=== PATIENT | male | born 1950 | race Caucasian/White ===

== ENCOUNTER 2020-10-28 00:17 | Emergency (ER) | payer MEDICARE, BC ==
[~2020-10-28] VITALS: Ht 175.3 cm; Wt 98.0 kg
[~2020-10-28 00:17] MED LIST: ALLO100T PO; ASPI-1264 PO; CALC-854 PO; CHOL10002 PO; DIPH25CA83 PO; DOCU-28 PO; LIQUID IRON PO; METO-539 PO; NAPR-1144 PO; SIMV80TA2 PO; WALKERFR
[2020-10-28 00:37] VITALS: BP 169/85
[2020-10-28 01:16] LABS: ALANINE AMINOTRANSFERASE 32 U/L (12-78); ALBUMIN 3.9 G/DL (3.4-5.0); ALBUMIN/GLOBULIN RATIO 1.3 (1.1-1.5); ALKALINE PHOSPHATASE 83 IU/L (46-116); ANION GAP 12 (8-16); ASPARTATE AMINO TRANSFERASE 19 U/L (10-37); BILIRUBIN,TOTAL 0.4 MG/DL (0.1-1.0); BLOOD UREA NITROGEN 34 MG/DL (7-18); BUN/CREATININE RATIO 30.4 (5.4-32.0); CALCIUM 8.6 MG/DL (8.5-10.1); CHLORIDE 109 MMOL/L (99-107); CREATININE 1.12 MG/DL (0.60-1.10); GLUCOSE 121 MG/DL (70-104); POTASSIUM 3.8 MMOL/L (3.5-5.1); SODIUM 146 MMOL/L (135-145); TOTAL CARBON DIOXIDE 25.4 MMOL/L (24-32); TOTAL PROTEIN 6.9 G/DL (6.4-8.2); eGFR 64 ML/MIN
[2020-10-28 01:19] LABS: CLARITY,URINE CLEAR (Clear); COLOR,URINE YELLOW (Yellow); GLUCOSE, URINE NEGATIVE (Neg); KETONES,URINE NEGATIVE (Neg); LEUKOCYTE ESTERASE ,URINE TRACE (Neg); NITRITES, URINE NEGATIVE (Neg); OCCULT BLOOD,URINE MODERATE (Neg); PH,URINE 5.5 (4.8-8.0); PROTEIN,URINE NEGATIVE (Neg)
[2020-10-28 01:29] LABS: BACTERIA,URINE 1+ /HPF (Neg); SQUAMOUS EPITHELIAL CELL,UR FEW /LPF (FEW)
[2020-10-28 01:53] LABS: BASOPHILS % (AUTO) 0.7 % (0-1); EOSINOPHILS # (AUTO) 0.2 X10'3 (0-0.9); EOSINOPHILS % (AUTO) 3.5 % (0-6); HEMATOCRIT 43.7 % (42.0-52.0); HEMOGLOBIN 14.5 g/dl (14.0-17.9); LYMPHOCYTES # (AUTO) 2.7 X10'3 (1.1-4.8); LYMPHOCYTES % (AUTO) 41.1 % (21-51); MEAN CORPUSCULAR HEMOGLOBIN 33.3 PG (27.0-31.0); MEAN CORPUSCULAR HGB CONC 33.2 g/dL (33.0-36.5); MEAN CORPUSCULAR VOLUME 100.2 FL (78-98); MEAN PLATELET VOLUME 11.1 FL (7.4-10.4); MONOCYTES # (AUTO) 0.6 X10'3 (0-0.9); MONOCYTES % (AUTO) 9.6 % (2-12); NEUTROPHILS % (AUTO) 45.1 % (42-75); PLATELET COUNT 141 X10'3 (140-440); RED BLOOD COUNT 4.36 X10'6 (4.70-6.10); RED CELL DISTRIBUTION WIDTH 13.8 % (11.5-14.5); WHITE BLOOD COUNT 6.7 X10'3 (4.5-11.0)
[2020-10-28 02:15] LABS: UA COLLECTION TYPE CLN CATCH MIDSTREAM
[2020-10-28] MEDS ORDERED: ONDA4TAB12 PO (03:45)
== END 2020-10-28 04:00 | disposition home or self-care (01) ==
LOC: ER 00:17
DX: N20.0 Calculus of kidney (principal); R10.84 Generalized abdominal pain; Z88.5 Allergy status to narcotic agent; Z88.8 Allergy status to other drugs, medicaments and biological substances; Z79.82 Long term (current) use of aspirin; Z79.899 Other long term (current) drug therapy
CPT/HCPCS: 36415; 74176; 80053; 81001; 85025; 99284

== ENCOUNTER 2021-05-04 05:38 | Inpatient (IN) | payer MEDICARE ==
[~2021-05-04] VITALS: Ht 177.8 cm; Wt 100.0 kg
[~2021-05-04 05:38] MED LIST changes: +ONDA4TAB12 PO
[2021-05-04] MEDS ORDERED: ROSU20TA31 PO (06:04)
[2021-05-04 06:09] LABS: BASOPHILS # (AUTO) 0.1 X10'3 (0-0.2); BASOPHILS % (AUTO) 0.9 % (0-1); EOSINOPHILS # (AUTO) 0.2 X10'3 (0-0.9); EOSINOPHILS % (AUTO) 2.9 % (0-6); HEMATOCRIT 44.4 % (42.0-52.0); HEMOGLOBIN 14.9 g/dl (14.0-17.9); LYMPHOCYTES # (AUTO) 2.9 X10'3 (1.1-4.8); LYMPHOCYTES % (AUTO) 45.1 % (21-51); MEAN CORPUSCULAR HEMOGLOBIN 32.8 PG (27.0-31.0); MEAN CORPUSCULAR HGB CONC 33.6 g/dL (33.0-36.5); MEAN CORPUSCULAR VOLUME 97.7 FL (78-98); MEAN PLATELET VOLUME 10.8 FL (7.4-10.4); MONOCYTES # (AUTO) 0.7 X10'3 (0-0.9); MONOCYTES % (AUTO) 10.5 % (2-12); NEUTROPHILS # (AUTO) 2.6 X10'3 (1.8-7.7); NEUTROPHILS % (AUTO) 40.6 % (42-75); PLATELET COUNT 130 X10'3 (140-440); RED BLOOD COUNT 4.55 X10'6 (4.70-6.10); RED CELL DISTRIBUTION WIDTH 14.4 % (11.5-14.5); WHITE BLOOD COUNT 6.4 X10'3 (4.5-11.0)
[2021-05-04 06:12] LABS: D-DIMER 0.85 MG/L FEU (0-0.50)
[2021-05-04 06:20] LABS: ALANINE AMINOTRANSFERASE 31 U/L (12-78); ALBUMIN 3.8 G/DL (3.4-5.0); ALBUMIN/GLOBULIN RATIO 1.2 (1.1-1.5); ANION GAP 11 (8-16); ASPARTATE AMINO TRANSFERASE 24 U/L (10-37); BILIRUBIN,TOTAL 0.4 MG/DL (0.1-1.0); BLOOD UREA NITROGEN 31 MG/DL (7-18); BUN/CREATININE RATIO 29.5 (5.4-32.0); CHLORIDE 106 MMOL/L (99-107); CREATININE 1.05 MG/DL (0.60-1.10); GLUCOSE 134 MG/DL (70-104); SODIUM 144 MMOL/L (135-145); TOTAL CARBON DIOXIDE 26.8 MMOL/L (24-32); TOTAL PROTEIN 7.1 G/DL (6.4-8.2); eGFR 69 ML/MIN
[2021-05-04] MEDS ORDERED: ondansetron 4mg rapidly disintigrating tab PO ONE (06:20)
[2021-05-04] MEDS ORDERED: fentaNYL/PF 50MCG/1 ML 2ML syringe IV ONE (06:20)
[2021-05-04 06:24] LABS: POTASSIUM 4.3 MMOL/L (3.5-5.1)
[2021-05-04] MEDS ORDERED: normal saline 1000ml 1,000 ML IV ONE (06:30)
[2021-05-04] MEDS ORDERED: famotidine/PF 10 mg/ml inj IV ONE (06:30)
[2021-05-04] MEDS ORDERED: iohexol 350MG/ML 100ml bottle IV ONE (07:01)
--- NOTE | 2021-05-04 07:17 | NUR ---
To CT at this time via [facility].
[2021-05-04] MEDS ORDERED: potassium CL 10mEq/100ml bag 100 ML IV PRN (09:00)
[2021-05-04] MEDS ORDERED: enoxaparin 40mg/0.4ml syringe SUBCUT SCH (09:00)
[2021-05-04] MEDS ORDERED: magnesium 4gm in 100ml NS 100 ML IV PRN (09:00)
[2021-05-04] MEDS ORDERED: mag hydrox/Alum hydrox/simeth 30ml oral suspension PO PRN (09:00)
[2021-05-04] MEDS ORDERED: regadenoson 0.4mg/5ml syringe IV PRN (09:00)
[2021-05-04] MEDS ORDERED: magnesium Cl slow-release 64mg tablet PO PRN (09:00)
[2021-05-04] MEDS ORDERED: acetaminophen 650mg rectal suppository RC PRN (09:00)
[2021-05-04] MEDS ORDERED: metoprolol tartrate 1mg/ml inj IV PRN (09:00)
[2021-05-04] MEDS ORDERED: potassium Cl 20 mEq SR tablet PO PRN ×2 (09:00)
[2021-05-04] MEDS ORDERED: magnesium 2GM in 50ml NS 50 ML IV PRN (09:00)
[2021-05-04] MEDS ORDERED: diphenhydrAMINE 25mg capsule PO PRN ×2 (09:00→18:55)
[2021-05-04] MEDS ORDERED: bisacodyl 10mg suppository rectal RC PRN (09:00)
[2021-05-04] MEDS ORDERED: magnesium hydroxide 30ml (MOM) UD suspension PO PRN (09:00)
[2021-05-04] MEDS ORDERED: acetaminophen 325mg tablet PO PRN ×2 (09:00)
[2021-05-04] MEDS ORDERED: ondansetron/PF 4mg/2ml inj IV PRN (09:00)
[2021-05-04] MEDS ORDERED: nitroGLYCERIN 0.4mg SUBLingual tab SL PRN (09:00)
[2021-05-04] MEDS ORDERED: aminophylline 250mg/10ml inj. IV PRN (09:00)
[2021-05-04] MEDS ORDERED: heparin 10,000 units/1 ML INJ IV ONE (09:05)
[2021-05-04] MEDS ORDERED: heparin 25,000 UNIT/250ml bag 250 ML IV SCH (09:05)
[2021-05-04 09:20] LABS: ANISOCYTOSIS FEW; LARGE PLATELETS FEW; PLATELET ESTIMATE DECREASED
[2021-05-04 09:21] LABS: ELLIPTOCYTES FEW
[2021-05-04 09:25] LABS: APTT 27 SECONDS (22-32)
[2021-05-04] MEDS: normal saline 1000ml 1,000 ML IV SCH ×2 (09:25→23:40)
[2021-05-04 09:32] LABS: BASOPHILS % (AUTO) 0.7 % (0-1); EOSINOPHILS % (AUTO) 0.6 % (0-6); HEMATOCRIT 38.3 % (42.0-52.0); HEMOGLOBIN 13.2 g/dl (14.0-17.9); LYMPHOCYTES # (AUTO) 1.5 X10'3 (1.1-4.8); LYMPHOCYTES % (AUTO) 21.9 % (21-51); MEAN CORPUSCULAR HGB CONC 34.6 g/dL (33.0-36.5); MEAN CORPUSCULAR VOLUME 95.5 FL (78-98); MEAN PLATELET VOLUME 10.3 FL (7.4-10.4); MONOCYTES # (AUTO) 0.4 X10'3 (0-0.9); MONOCYTES % (AUTO) 6.7 % (2-12); NEUTROPHILS # (AUTO) 4.6 X10'3 (1.8-7.7); NEUTROPHILS % (AUTO) 70.1 % (42-75); PLATELET COUNT 144 X10'3 (140-440); RED BLOOD COUNT 4.01 X10'6 (4.70-6.10); RED CELL DISTRIBUTION WIDTH 14.4 % (11.5-14.5); WHITE BLOOD COUNT 6.6 X10'3 (4.5-11.0)
[2021-05-04 10:13] LABS: CLARITY,URINE CLOUDY (Clear); COLOR,URINE YELLOW (Yellow); GLUCOSE, URINE NEGATIVE (Neg); KETONES,URINE NEGATIVE (Neg); LEUKOCYTE ESTERASE ,URINE NEGATIVE (Neg); NITRITES, URINE NEGATIVE (Neg); OCCULT BLOOD,URINE LARGE (Neg); PROTEIN,URINE NEGATIVE (Neg); UROBILINOGEN,URINE 0.2 E.U/dL (0.2-1.0)
[2021-05-04 10:19] LABS: UA COLLECTION TYPE URINAL
[2021-05-04 10:20] LABS: RBC,URINE TNTC /HPF (0-2)
[2021-05-04 10:21] LABS: BACTERIA,URINE FEW /HPF (Neg); MUCUS STRANDS FEW /LPF (Neg); SQUAMOUS EPITHELIAL CELL,UR FEW /LPF (FEW); WBC,URINE 0-4 /HPF (0-4)
[2021-05-04 10:45] VITALS: BP 138/70
--- NOTE | 2021-05-04 10:45 | NUR ---
DR. GUERRERO AND PRIMARY RN AZUL IN PATIENT ROOM ON ARRIVAL TO PICKUP PT AND TRANSPORT PT TO [facility] FOR STRESS TEST. ADDRESSED DOCTOR ABOUT ELEVATED 2ND TROPONIN , 3RD TROP IS DUE AT 1130. DOCTOR STATED, TO HOLD OFF STRESS PORTION IF THE 3RD TROP COMES BACK ELEVATED.
[2021-05-04] MEDS ORDERED: HYDROcodone/acetaminophen 5mg/325mg tablet PO PRN (13:15)
--- NOTE | 2021-05-04 13:20 | NUR ---
PAGED REGARDING 3RD TROPONIN BEING ELEVATE. PER PREVIOUS CONVERSATION WITH WILL HOLD STRESS PORTION UNTIL FISHING ROD MARKER IS CONSULTED. WILL FOLLOWUP WITH RN.
[2021-05-04 15:00] VITALS: BP 141/70
[2021-05-04] MEDS ORDERED: DOCU100C42 PO (16:44)
[2021-05-04] MEDS ORDERED: NAPR-1115 PO ×2 (16:44→16:46)
[2021-05-04] MEDS ORDERED: DIPH-735 PO (16:44)
[2021-05-04 18:00] VITALS: BP 142/83
[2021-05-04] MEDS ORDERED: docusate sod 100mg capsule PO PRN (18:45)
[2021-05-04] MEDS: heparin 25,000 UNIT/250ml bag 250 ML IV SCH (19:08)
[2021-05-04] MEDS: K and/or MAG REPLACEMENT MC SCH (20:00)
[2021-05-04] MEDS: metoprolol tartrate 25mg tablet PO SCH (20:26)
[2021-05-04] MEDS: docusate sod 100mg capsule PO SCH (20:26)
[2021-05-04] MEDS: heparin 10,000 units/1 ML INJ IV PRN (23:33)
[2021-05-05] VITALS (7 sets, daily range): BP systolic 105–141; BP diastolic 62–84
--- NOTE | 2021-05-05 02:00 | NUR ---
Pt Tip Trinidad In room 3014 B has a 2 seconds pause around 2 AM. Pt was trying to get out of bed to the bathroom. pt denied chest pain or respiratory discomfort, Heparin drips infusing well.
[2021-05-05 05:51] LABS: BASOPHILS % (AUTO) 0.5 % (0-1); EOSINOPHILS # (AUTO) 0.1 X10'3 (0-0.9); EOSINOPHILS % (AUTO) 1.5 % (0-6); HEMATOCRIT 40.8 % (42.0-52.0); HEMOGLOBIN 13.7 g/dl (14.0-17.9); LYMPHOCYTES # (AUTO) 2.3 X10'3 (1.1-4.8); LYMPHOCYTES % (AUTO) 28.5 % (21-51); MEAN CORPUSCULAR HEMOGLOBIN 32.8 PG (27.0-31.0); MEAN CORPUSCULAR HGB CONC 33.6 g/dL (33.0-36.5); MEAN CORPUSCULAR VOLUME 97.7 FL (78-98); MEAN PLATELET VOLUME 11.4 FL (7.4-10.4); MONOCYTES # (AUTO) 0.6 X10'3 (0-0.9); MONOCYTES % (AUTO) 8.2 % (2-12); NEUTROPHILS # (AUTO) 4.8 X10'3 (1.8-7.7); NEUTROPHILS % (AUTO) 61.3 % (42-75); PLATELET COUNT 129 X10'3 (140-440); RED BLOOD COUNT 4.17 X10'6 (4.70-6.10); RED CELL DISTRIBUTION WIDTH 14.4 % (11.5-14.5); WHITE BLOOD COUNT 7.9 X10'3 (4.5-11.0)
--- NOTE | 2021-05-05 07:00 | NUR ---
Heparin drip on hold at this time; nurse receiving report aware.
[2021-05-05 07:51] LABS: ALANINE AMINOTRANSFERASE 32 U/L (12-78); ALBUMIN 3.3 G/DL (3.4-5.0); ALBUMIN/GLOBULIN RATIO 1.3 (1.1-1.5); ALKALINE PHOSPHATASE 66 IU/L (46-116); ANION GAP 14 (8-16); ASPARTATE AMINO TRANSFERASE 70 U/L (10-37); BILIRUBIN,TOTAL 0.3 MG/DL (0.1-1.0); BLOOD UREA NITROGEN 22 MG/DL (7-18); BUN/CREATININE RATIO 22.7 (5.4-32.0); CALCIUM 8.5 MG/DL (8.5-10.1); CHLORIDE 107 MMOL/L (99-107); CHOL/HDL RATIO 5.3 (0.00-4.99); CHOLESTEROL 243 MG/DL (0-200); CREATININE 0.97 MG/DL (0.60-1.10); GLUCOSE 115 MG/DL (70-104); HDL CHOLESTEROL 46 MG/DL (35-60); LDL CHOLESTEROL 154 MG/DL (50-100); MAGNESIUM 1.9 MG/DL (1.5-2.4); PHOSPHORUS 3.4 MG/DL (2.3-4.5); POTASSIUM 4.1 MMOL/L (3.5-5.1); SODIUM 143 MMOL/L (135-145); TOTAL PROTEIN 5.9 G/DL (6.4-8.2); TRIGLYCERIDES 115 MG/DL (20-135); eGFR 76 ML/MIN
[2021-05-05] MEDS ORDERED: [UNRECOGNIZED DRUG - REMARK] PO SCH (08:00)
[2021-05-05] MEDS: heparin 25,000 UNIT/250ml bag 250 ML IV SCH (08:00)
[2021-05-05] MEDS: K and/or MAG REPLACEMENT MC SCH ×2 (08:06→19:49)
[2021-05-05] MEDS: aspirin 81mg tab.chew PO SCH (10:23)
[2021-05-05] MEDS: docusate sod 100mg capsule PO SCH ×2 (10:24→19:39)
[2021-05-05] MEDS: allopurinol 100mg tablet PO SCH (10:24)
[2021-05-05] MEDS: metoprolol tartrate 25mg tablet PO SCH ×2 (10:25→19:47)
[2021-05-05] MEDS: normal saline 1000ml 1,000 ML IV SCH (10:30)
--- NOTE | 2021-05-05 11:25 | NUR ---
DM consult: Noted pt A1c 7.0, though no hx of DM in the EMR. mechanical engineering intern discussed w/ pt at bedside who states he has no known hx of DM. Discussed w/ nurse that physician needs to give pt official dx before RD can provide DM education. Addendum: 05/05/21 at 1125 by Nadia Travis Supervisor [employer] RD Amended: Links added.
--- NOTE | 2021-05-05 11:58 | NUR ---
DM consult: Pt admit dx chest pain secondary to NSTEMI, w/ hx hyperlipidemia, HTN, and CAD per EMR. Noted pt A1c 7.0, though no hx of DM in the EMR. international marketing executive discussed w/ pt at bedside who states he has no known hx of DM. Discussed w/ nurse that physician needs to give pt official dx before RD can provide DM education. Pt currently on heart healthy diet w/ 75-100% x first two meals and meeting needs. LBM pending, receiving routine bowel care. Will continue to monitor for nutrition intervention needs. Recommendations: 1. Continue heart healthy diet 2. Routine bowel care 3. Scaled wt this admit, subsequent weekly scaled wts 4. DM ed by RD once pt made aware of DM dx by Addendum: 05/05/21 at [address] Amended: Links added. Addendum: 05/05/21 at [address] I have reviewed assessment by graphics intern
[2021-05-05] MEDS: heparin 10,000 units/1 ML INJ IV PRN (14:49)
[2021-05-05] MEDS ORDERED: nitroGLYCERIN-Tridil 50MG/D5W 250 ML IV ONE (16:30)
[2021-05-05] MEDS ORDERED: iohexol 350MG/ML 100ml bottle IV ONE ×2 (16:31→17:26)
[2021-05-05] MEDS ORDERED: midazolam 1 mg/ML 2ml injection ONE (16:31)
[2021-05-05] MEDS ORDERED: fentaNYL/PF 50MCG/1 ML 2ML syringe ONE (16:31)
[2021-05-05] MEDS ORDERED: LIDOcaine 1% (10mg/ml)w/preservative injection 20ml MDV ONE (16:31)
[2021-05-05] MEDS ORDERED: iohexol 350 MG/ML 50ML vial IV ONE (16:31)
--- NOTE | 2021-05-05 16:46 | NUR ---
Patient went down to collaborating supervising physician.
[2021-05-05] MEDS ORDERED: heparin 1,000unit/ml 10ml vial 10 ML ONE (17:04)
--- NOTE | 2021-05-05 18:20 | NUR ---
Pt back to floor post cardiac cath. Post cardiac cath activity teaching done. Pt verbalized understanding. Will continue to instruct pt to stay flat in bed and to report any bleeding or hematoma to his right groin
[2021-05-05] MEDS ORDERED: isosorbide mononitrate 30mg tab.SR.24H PO ONE (19:35)
--- NOTE | 2021-05-05 21:21 | NUR ---
No signs of bleeding , no hematoma noted. Pt continues to lay flat in bed.
[2021-05-06] MEDS: normal saline 1000ml 1,000 ML IV SCH (01:00)
--- NOTE | 2021-05-06 01:38 | NUR ---
Pt still lying in in bed instructed that he can get up to ambulate. No hematoma, no bleeding noted. Bilateral pedal pulse felt
[2021-05-06 02:00] VITALS: BP 100/54
--- NOTE | 2021-05-06 04:00 | NUR ---
Pt out of bed to the bathroom, no signs of discomfort noted. Left groin with clean and intact dressing. Addendum: 05/06/21 at 0705 [address]ena Cr RN right anthony
--- NOTE | 2021-05-06 05:00 | NUR ---
Pt sitting in chair, no signs of bleeding noted to right groin. Pedal pulse felt.
[2021-05-06 06:00] VITALS: BP 114/61
[2021-05-06 06:57] LABS: BASOPHILS % (AUTO) 0.4 % (0-1); EOSINOPHILS # (AUTO) 0.1 X10'3 (0-0.9); EOSINOPHILS % (AUTO) 1.1 % (0-6); HEMATOCRIT 39.4 % (42.0-52.0); HEMOGLOBIN 13.2 g/dl (14.0-17.9); LYMPHOCYTES # (AUTO) 1.5 X10'3 (1.1-4.8); LYMPHOCYTES % (AUTO) 23.8 % (21-51); MEAN CORPUSCULAR HEMOGLOBIN 32.6 PG (27.0-31.0); MEAN CORPUSCULAR HGB CONC 33.4 g/dL (33.0-36.5); MEAN CORPUSCULAR VOLUME 97.7 FL (78-98); MEAN PLATELET VOLUME 11.2 FL (7.4-10.4); MONOCYTES # (AUTO) 0.6 X10'3 (0-0.9); MONOCYTES % (AUTO) 9.2 % (2-12); NEUTROPHILS # (AUTO) 4.1 X10'3 (1.8-7.7); NEUTROPHILS % (AUTO) 65.5 % (42-75); PLATELET COUNT 122 X10'3 (140-440); RED BLOOD COUNT 4.03 X10'6 (4.70-6.10); RED CELL DISTRIBUTION WIDTH 14.5 % (11.5-14.5); WHITE BLOOD COUNT 6.2 X10'3 (4.5-11.0)
[2021-05-06 07:17] LABS: ALANINE AMINOTRANSFERASE 29 U/L (12-78); ALBUMIN 3.1 G/DL (3.4-5.0); ALBUMIN/GLOBULIN RATIO 1.2 (1.1-1.5); ALKALINE PHOSPHATASE 64 IU/L (46-116); ANION GAP 10 (8-16); ASPARTATE AMINO TRANSFERASE 52 U/L (10-37); BILIRUBIN,TOTAL 0.4 MG/DL (0.1-1.0); BLOOD UREA NITROGEN 20 MG/DL (7-18); BUN/CREATININE RATIO 21.1 (5.4-32.0); CALCIUM 8.4 MG/DL (8.5-10.1); CHLORIDE 107 MMOL/L (99-107); CREATININE 0.95 MG/DL (0.60-1.10); GLUCOSE 102 MG/DL (70-104); MAGNESIUM 1.8 MG/DL (1.5-2.4); PHOSPHORUS 3.8 MG/DL (2.3-4.5); POTASSIUM 4.1 MMOL/L (3.5-5.1); SODIUM 144 MMOL/L (135-145); TOTAL CARBON DIOXIDE 26.8 MMOL/L (24-32); TOTAL PROTEIN 5.7 G/DL (6.4-8.2); eGFR 78 ML/MIN
[2021-05-06] MEDS ORDERED: isosorbide mononitrate 30mg tab.SR.24H PO SCH (08:00)
[2021-05-06] MEDS ORDERED: ROSUVASTATIN CALCIUM 5 MG TABLET PO SCH (08:00)
[2021-05-06] MEDS: allopurinol 100mg tablet PO SCH (08:51)
[2021-05-06] MEDS: docusate sod 100mg capsule PO SCH (08:52)
[2021-05-06] MEDS: aspirin 81mg tab.chew PO SCH (08:52)
[2021-05-06] MEDS: metoprolol tartrate 25mg tablet PO SCH (08:55)
[2021-05-06] MEDS: K and/or MAG REPLACEMENT MC SCH (08:58)
[2021-05-06] MEDS ORDERED: ISOS30TA84 PO (10:41)
[2021-05-06 11:00] VITALS: BP 113/53
[2021-05-06] MEDS ORDERED: ROSU40TA PO (11:37)
--- NOTE | 2021-05-06 13:00 | NUR ---
Patient discharge to home. Discharged instruction provided to patient and to follow up with PCP and parts representative in 1 week. Patient and verbalized understanding. IV discontinue. Addendum: 05/06/21 at 1322 [address] Bethany Cr RN Patient discharge to home. Discharged instruction provided to patient and to follow up with PCP and parts representative in 1 week. Patient and verbalized understanding. IV discontinue. Patient left with all belongings.
== END 2021-05-06 14:19 | disposition home or self-care (01) | DRG 282 ==
LOC: ER 05:38 → ED HOLD 09:04 → PCU 3S 10:32
PROVIDERS: ADMIT Family Medicine; ATTEND Family Medicine
PROC: B32T1ZZ Computerized Tomography (CT Scan) of Left Pulmonary Artery using Low Osmolar Contrast (ICD-10-PCS; 2021-05-04)
PROC: B3201ZZ Computerized Tomography (CT Scan) of Thoracic Aorta using Low Osmolar Contrast (ICD-10-PCS; 2021-05-04)
PROC: B32S1ZZ Computerized Tomography (CT Scan) of Right Pulmonary Artery using Low Osmolar Contrast (ICD-10-PCS; 2021-05-04)
PROC: 4A02XM4 Measurement of Cardiac Total Activity, External Approach (ICD-10-PCS; 2021-05-04)
PROC: 3E033HZ Introduction of Radioactive Substance into Peripheral Vein, Percutaneous Approach (ICD-10-PCS; 2021-05-04)
PROC: 4A023N7 Measurement of Cardiac Sampling and Pressure, Left Heart, Percutaneous Approach (ICD-10-PCS; principal; 2021-05-05)
PROC: B2111ZZ Fluoroscopy of Multiple Coronary Arteries using Low Osmolar Contrast (ICD-10-PCS; 2021-05-05)
PROC: B2151ZZ Fluoroscopy of Left Heart using Low Osmolar Contrast (ICD-10-PCS; 2021-05-05)
PROC: B3101ZZ Fluoroscopy of Thoracic Aorta using Low Osmolar Contrast (ICD-10-PCS; 2021-05-05)
PROC: B2131ZZ Fluoroscopy of Multiple Coronary Artery Bypass Grafts using Low Osmolar Contrast (ICD-10-PCS; 2021-05-05)
PROC: B2181ZZ Fluoroscopy of Left Internal Mammary Bypass Graft using Low Osmolar Contrast (ICD-10-PCS; 2021-05-05)
PROC: B2171ZZ Fluoroscopy of Right Internal Mammary Bypass Graft using Low Osmolar Contrast (ICD-10-PCS; 2021-05-05)
DX: I21.4 Non-ST elevation (NSTEMI) myocardial infarction (principal); Z20.822 Contact with and (suspected) exposure to COVID-19; E78.5 Hyperlipidemia, unspecified; E78.00 Pure hypercholesterolemia, unspecified; I10 Essential (primary) hypertension; E11.9 Type 2 diabetes mellitus without complications; I25.10 Atherosclerotic heart disease of native coronary artery without angina pectoris; M10.9 Gout, unspecified; Z96.652 Presence of left artificial knee joint; M19.90 Unspecified osteoarthritis, unspecified site; Z79.82 Long term (current) use of aspirin; Z79.899 Other long term (current) drug therapy; Z82.49 Family history of ischemic heart disease and other diseases of the circulatory system; Z95.1 Presence of aortocoronary bypass graft; Z88.8 Allergy status to other drugs, medicaments and biological substances; Z88.5 Allergy status to narcotic agent; Z81.1 Family history of alcohol abuse and dependence
CPT/HCPCS: 36415; 71045; 71275; 76937; 78451; 80053; 80061; 81001; 83036; 83735; 83880; 84100; 84484; 85008; 85025; 85347; 85379; 85610; 85730; 87635; 93005; 93306; 93459; 93567; 96361; 96374; 96375; 99152; 99153; 99285; A4620; A6258; A9500; C1760; C1769; C1894; G0378; J1644; J1650; J2250; J3010; J3490; J7030; Q9967

== ENCOUNTER 2024-02-11 07:27 | Day surgery (SDC) | payer MEDICARE, OTHER ==
[~2024-02-11] VITALS: Ht 175.3 cm; Wt 89.8 kg
[2024-02-11] VITALS (10 sets, daily range): BP systolic 117–152; BP diastolic 50–80; PULSE 59–72; RESP 16–20; TEMP 97.5; O2SAT 94–98
[~2024-02-11 07:27] MED LIST changes: -CALC-854 PO; -CHOL10002 PO; +DIPH-735 PO; -DIPH25CA83 PO; -DOCU-28 PO; +DOCU100C42 PO; +ISOS30TA84 PO; -LIQUID IRON PO; -NAPR-1144 PO; -ONDA4TAB12 PO; +ROSU20TA98 PO; +ROSU40TA PO; -SIMV80TA2 PO; -WALKERFR; +normal saline 1000ml 1,000 ML IV SCH
[2024-02-11] MEDS ORDERED: ceFAZolin 2gm in dextrose, iso 50 ML IV ONE (08:12)
[2024-02-11 08:27] LABS: BASOPHILS # (AUTO) 0.1 X10'3 (0-0.2); BASOPHILS % (AUTO) 0.8 % (0-1); EOSINOPHILS # (AUTO) 0.1 X10'3 (0-0.9); EOSINOPHILS % (AUTO) 1.8 % (0-6); HEMATOCRIT 47.8 % (42.0-52.0); HEMOGLOBIN 15.9 g/dl (14.0-17.9); LYMPHOCYTES # (AUTO) 1.8 X10'3 (1.1-4.8); LYMPHOCYTES % (AUTO) 27.7 % (21-51); MEAN CORPUSCULAR HEMOGLOBIN 33.6 PG (27.0-31.0); MEAN CORPUSCULAR HGB CONC 33.3 g/dL (33.0-36.5); MEAN CORPUSCULAR VOLUME 101.1 FL (78-98); MEAN PLATELET VOLUME 11.3 FL (7.4-10.4); MONOCYTES # (AUTO) 0.6 X10'3 (0-0.9); MONOCYTES % (AUTO) 9.1 % (2-12); NEUTROPHILS # (AUTO) 3.9 X10'3 (1.8-7.7); NEUTROPHILS % (AUTO) 60.6 % (42-75); PLATELET COUNT 129 X10'3 (140-440); RED BLOOD COUNT 4.73 X10'6 (4.70-6.10); RED CELL DISTRIBUTION WIDTH 14.2 % (11.5-14.5); WHITE BLOOD COUNT 6.5 X10'3 (4.5-11.0)
[2024-02-11] MEDS ORDERED: ALLO300T8 PO (08:32)
[2024-02-11] MEDS ORDERED: EZET10TA48 PO (08:33)
[2024-02-11] MEDS ORDERED: UBID200C18 PO (08:33)
[2024-02-11] MEDS ORDERED: METO25TA6 PO (08:34)
[2024-02-11] MEDS ORDERED: FLO0.4C (08:35)
[2024-02-11] MEDS ORDERED: ASPI-1071 PO (08:38)
[2024-02-11] MEDS ORDERED: CHOL500044 PO (08:40)
[2024-02-11] MEDS ORDERED: APIX5TAB3 PO (08:41)
[2024-02-11 08:42] LABS: APTT 28 SECONDS (22-32); INR 1.1 INR; PROTHROMBIN TIME 11.6 SECONDS (9.0-12.0)
[2024-02-11 09:47] LABS: ANION GAP 10 (8-16); BLOOD UREA NITROGEN 22 MG/DL (7-18); CALCIUM 9.1 MG/DL (8.5-10.1); CHLORIDE 106 MMOL/L (99-107); GLUCOSE 105 MG/DL (70-104); SODIUM 143 MMOL/L (135-145); TOTAL CARBON DIOXIDE 26.6 MMOL/L (24-32); eCRCL 58 ML/MIN; eGFR 65 ML/MIN
[2024-02-11] MEDS ORDERED: fentaNYL/PF 50MCG/1 ML 2ML syringe ONE (10:39)
[2024-02-11] MEDS ORDERED: ceFAZolin 1000mg inj ONE (10:39)
[2024-02-11] MEDS ORDERED: iohexol 350 MG/ML 50ML vial IV ONE (10:39)
[2024-02-11] MEDS ORDERED: LIDOcaine 1% W/epiNEPHrine 1:100,000 20ml vial ONE (10:39)
[2024-02-11] MEDS ORDERED: midazolam 1 mg/ML 2ml injection ONE ×2 (10:39→12:15)
[2024-02-11] MEDS ORDERED: diphenhydrAMINE 50 mg/ml inj ONE (12:15)
[2024-02-11] MEDS ORDERED: CEPH-585 PO (14:54)
[2024-02-11] MEDS ORDERED: HYDROcodone/acetaminophen 5mg/325mg tablet PO PRN (15:00)
[2024-02-11] MEDS ORDERED: HYDROcodone/acetaminophen 10/325mg tab PO PRN (15:00)
[2024-02-11] MEDS: VANCOMYCIN 1GM 200ML H20 (PEG) 200 ML IV ONE (15:20)
== END 2024-02-11 18:00 | disposition home or self-care (01) ==
LOC: SSTAY O 07:27
PROVIDERS: ATTEND Internal Medicine Cardiovascular Disease
DX: I49.5 Sick sinus syndrome (principal); I25.10 Atherosclerotic heart disease of native coronary artery without angina pectoris; I10 Essential (primary) hypertension; E11.9 Type 2 diabetes mellitus without complications; I48.0 Paroxysmal atrial fibrillation; E78.01 Familial hypercholesterolemia; E66.9 Obesity, unspecified; M19.90 Unspecified osteoarthritis, unspecified site; Z79.82 Long term (current) use of aspirin; Z79.899 Other long term (current) drug therapy; Z95.1 Presence of aortocoronary bypass graft; Z96.652 Presence of left artificial knee joint; Z98.890 Other specified postprocedural states; Z68.29 Body mass index [BMI] 29.0-29.9, adult; Z88.5 Allergy status to narcotic agent; Z82.49 Family history of ischemic heart disease and other diseases of the circulatory system
CPT/HCPCS: 33208; 71046; 80048; 85025; 85610; 85730; 93005; 99152; 99153; A6402; C1785; J0690; J1200; J2250; J3010; J3372; J3490; J7030; Z7610; A6449; C1898; Q9967